=== PATIENT | male | born 1990 | race Two or more races ===

== ENCOUNTER 2020-04-22 09:13 | Outpatient (CLI) | payer OTHER, SELFPAY | END 2020-04-22 09:14 | disposition home or self-care (01) | LOC: ANHSURGERY 09:15 | PROVIDERS: PCP Internal Medicine; Visit Provider Surgery | DX: K40.30 Unilateral inguinal hernia, with obstruction, without gangrene, not specified as recurrent (principal); Z01.818 Encounter for other preprocedural examination | CPT/HCPCS: 36415; 86850; 86900; 86901 ==

== ENCOUNTER 2020-04-26 02:58 | Outpatient (CLI) | payer OTHER, SELFPAY ==
[2020-04-26 18:17] LABS: SARS-CoV-2 RNA PCR Negative
== END 2020-04-26 02:59 | disposition home or self-care (01) ==
LOC: ANHCOVIDDT 02:58
PROVIDERS: PCP Internal Medicine; Visit Provider Surgery
DX: Z01.812 Encounter for preprocedural laboratory examination (principal); Z20.828 Contact with and (suspected) exposure to other viral communicable diseases
CPT/HCPCS: 87635; C9803; U0003

== ENCOUNTER 2020-04-28 04:16 | Day surgery (SDC) | payer OTHER, SELFPAY ==
[2020-04-14 10:02] VITALS: BMI 28.8
[2020-04-28] VITALS (9 sets, daily range): BP systolic 126–141; BP diastolic 78–96; PULSE 54–75; RESP 14–22; TEMP 36.1–36.8; O2SAT 99–100
--- NOTE | 2020-04-28 10:30 | WPDANESEPPF ---
Anes - Initial Pre Proc Eval Procedure: Operation Date: 04/28/20 12:00 Proposed Procedures p Robotic Assisted Right Inguinal Hernia Repair With Mesh - Amy Lam MD Date/Time: 04/28/20 10:30 Surgeon: Amy Lam MD Pre Op Diagnosis: Incarcerated Right Inguinal Hernia Patient Data Age: 30 Gender: M Height: 5 ft 9 in Weight: 88.45 kg Allergies Allergy/AdvReac Type Severity Reaction Status Date / Time No Known Allergies Allergy Verified 04/14/20 10:02 Home Medications Medication Instructions Recorded Confirmed Type No Home Medications 04/08/20 04/14/20 History Patient hx anesthesia problems: none Family hx anesthesia problems: none PMFSH Family History Family History Father Diabetes mellitus Heart disease Hypertension Mother Diabetes mellitus Social History Social History Smoking status: Current some day smoker Tobacco type: cigars Additional smoking assessment comments: OCCASIONAL CIGAR FOR LAST 14 YEARS Alcohol intake: current Drinks per week: 8 Substance use: current Substance use type: marijuana Last use: 04/14/20 Additional occupation/education comments: [employer] Gender identity (if verbalized by the patient): Male Spiritual care concerns: No Agree to blood products: Yes Anes - Eval Final PreProcedure Day of Procedure 04/28/20 10:30 Patient weight: overweight Heart: regular rate and rhythm Lungs: clear to auscultation Airway: Mallampati scale class II Neurological: alert and oriented Last oral intake: >/= 8 hours ASA classification: II Emergent: no Anesthetic plan: proceed Anesthesia type and monitoring: general ETT and standard monitoring Informed Consent: The patient's anesthetic plan and its attendant risks and benefits were discussed with the patient/family/POA. Questions were solicited and answers provided to the satisfaction of the patient/family/POA.
[2020-04-28] MEDS: LACTATED RINGERS 1,000 ML 30 ML IV CONT ×3 (10:34→15:56)
[2020-04-28] MEDS: KETOROLAC 15 MG/ML VIAL (*BKC) IV PUSH (10:35)
[2020-04-28] MEDS: ACETAMINOPHEN 500 MG TABLET 1000 MG PO (10:35)
--- NOTE | 2020-04-28 12:01 | WPDHPUPDATE1 ---
History and Physical Update Update Date/Time: 04/28/20 12:01 History and Physical has been reviewed, including an updated exam of the patient. There are NO changes in the patient's condition. Risks, benefits, and alternatives have been discussed and questions answered. Patient agrees to proceed with procedure.
[2020-04-28] MEDS: ceFAZolin 2 GM/D5W 50 ML 2 GM/50 ML BAG IVPB (12:10)
[2020-04-28] MEDS: BUPIVACAINE/EPINEPHRINE 0.5% 10 ML VIAL 24 ML INFILTRATE (12:35)
--- NOTE | 2020-04-28 14:15 | PM.PROC ---
Procedure Note - Detailed Date of procedure: 04/28/20 Pre-op diagnosis: Incarcerated Right Inguinal Hernia Post-op diagnosis: same Procedure performed: robotic assisted incarcerated right inguinal hernia repair with mesh Description of procedure: Patient was brought into the operating room and placed in the supine position. After adequate induction of general anesthesia, the patient was prepped and draped in normal sterile fashion. A time-out was then done to verify the patient's identity, as well as the procedure being performed. Began by making a 8 mm incision in the supraumbilical region, a Veress needle was then placed into the peritoneal cavity. CO2 gas was then insufflated and after adequate pneumoperitoneum was achieved, the Veress needle was removed. I then placed an 8 mm trocar through this incision. I then placed the endoscope through this trocar site and under direct visualization placed 2 further 8 mm ports in the right and left mid abdomen. The [employer] robot was then docked to the 3 trocar sites. I then scrubbed out and went to the robotic console. Upon examining the pelvis, it was noted that the patient had a incarcerated right inguinal hernia with omentum. I was able to reduce the omentum with gentle retraction out of the hernia sac. Once this was done, I began by making a preperitoneal flap approximately 6 cm superior to the defect. This flap was carried medially past the umbilical ligaments in laterally to the transversalis. It then began dissection of my medial compartment taking this down to the pubic tubercle. I then began the lateral dissection taking this down to the transversalis fascia. Once these compartments were achieved, I began dissection around the cord structures. It was noted at this point that the patient had a indirect hernia. Patient also had a large lipoma the cord. Using careful dissection, was able to reduce the lipoma cord as well separate the indirect hernia off the cord structures. Once this was adequately done, I went ahead and placed a 15 x 10 piece of [employer] mesh into the abdominal cavity. The mesh was carefully positioned, centering the center of the mesh over the indirect defect. Once this was done, was very satisfied with our repair. I then closed the peritoneal flap with a running 2.0 V Lock suture. The abdomen was then desufflated, and all ports were removed. All incisions were then closed with the 4.0 monocryl suture. Dermabond was placed on each wound. The patient tolerated the procedure well, was extubated in the operating room postoperatively, and will now be transferred to the recovery room in stable condition. Implants: 15 x 10 progrip mesh Anesthesia: GETJose Surgeon: Amy Lam MD Estimated blood loss (mL): 5 Drains: No Packing: No Pathology: none sent Complications: No immediate complications Condition: stable Disposition: PACU Findings: indirect RIH c incarcerated omentum
[2020-04-28] MEDS: fentaNYL CITRATE INJ (*CRX) 100 MCG/2 ML VIAL 25 MCG IV PUSH ×4 (15:17→15:26)
== END 2020-04-28 16:50 | disposition home or self-care (01) ==
PROVIDERS: PCP Internal Medicine; Visit Provider Surgery
PROC: 8E0Y4CZ Robotic Assisted Procedure of Lower Extremity, Percutaneous Endoscopic Approach (ICD-10-PCS; CPT 49650; principal; 2020-04-28 12:00)
DX: K40.30 Unilateral inguinal hernia, with obstruction, without gangrene, not specified as recurrent (principal); F12.90 Cannabis use, unspecified, uncomplicated; Z72.0 Tobacco use
CPT/HCPCS: 49650; S2900; A9270; C1781; J0330; J0690; J1100; J1170; J1885; J2250; J2405; J2704; J3010; J7030; J7120